=== PATIENT | female | born 1950 | race American Indian/Alaskan Native ===

== ENCOUNTER 2017-01-22 13:29 | Observation (INO) | payer MEDICARE, MEDICAID ==
[2017-01-22 13:31] VITALS: BMI 26.4
--- NOTE | 2017-01-22 13:49 | ED PDOC ---
Arrival/HPI - General Chief Complaint: Chest Pain Time Seen by Provider: 01/22/17 13:31 Historian: Long-Term, EMS - History of Present Illness Narrative History of Present Illness (Text): 01/22/17 13:45 A 67 year old female, whose past medical history includes dementia, CAD and pacemaker, sent into the emergency department from longterm complaining of chest pain for 1 week. As per longterm, patients pain worsened today causing them to send patient in for further evaluation. EMS reports patient received Aspirin and Nitroglyecerin in field. Patient unable to provide further history due to dementia. HPI and ROS limited. PMD: Dr. Miranda Time/Duration: 1 week Symptom Course: Worsening (today) Context: Home (longterm) Past Medical History - Provider Review Nursing Documentation Reviewed: Yes - Infectious Disease Hx of Infectious Diseases: None - Cardiac Hx Atrial Fibrillation: Yes Hx Congestive Heart Failure: Yes Hx Hypertension: Yes Hx Pacemaker: Yes - Neurological Hx Dementia: Yes - Endocrine/Metabolic Hx Diabetes Mellitus Type 2: Yes - Musculoskeletal/Rheumatological Hx Osteoarthritis: Yes - Gastrointestinal Hx Gastroesophageal Reflux: Yes - Psychiatric Hx Anxiety: Yes Hx Depression: Yes Hx Substance Use: No - Anesthesia Hx Anesthesia: No Family/Social History - Physician Review Nursing Documentation Reviewed: Yes Family/Social History: No Known Family HX Smoking Status: Never Smoked Hx Alcohol Use: No Hx Substance Use: No Allergies/Home Meds Allergies/Adverse Reactions: Allergies No Known Allergies Allergy (Verified 01/22/17 13:41) Home Medications: Home Meds Medication Instructions Recorded Confirmed Acetaminophen [Tylenol Extra 1,000 mg PO TID PRN 01/22/17 01/22/17 Strength] Albuterol/Ipratropium [Duoneb 3 1 vial IH Q6 01/22/17 01/22/17 mg/0.5 mg (3 ml) UD] Ascorbic Acid [Vitamin C] 500 mg PO DAILY 01/22/17 01/22/17 Digoxin [Lanoxin] 0.125 mg PO ONCE 01/22/17 01/22/17 Donepezil [Aricept] 10 mg PO HS 01/22/17 01/22/17 Empagliflozin [Jardiance] 25 mg PO ONCE 01/22/17 01/22/17 Enalapril Maleate [Vasotec] 2.5 mg PO ONCE 01/22/17 01/22/17 Famotidine [Pepcid] 20 mg PO ONCE 01/22/17 01/22/17 Furosemide [Lasix] 40 mg PO ONCE 01/22/17 01/22/17 Gabapentin [Neurontin] 600 mg PO TID 01/22/17 01/22/17 Insulin Aspart, Recombinant 01/22/17 [Novolog] Insulin Glargine, Recombina 14 units SQ ONCE 01/22/17 01/22/17 [Lantus] Levothyroxine [Synthroid] 137 mcg PO ONCE 01/22/17 01/22/17 Rosuvastatin Calcium [Crestor] 10 mg PO ONCE 01/22/17 01/22/17 Spironolactone [Aldactone] 25 mg PO ONCE 01/22/17 01/22/17 Venlafaxine [Effexor] 37.5 mg PO ONCE 01/22/17 01/22/17 Zolpidem [Ambien] 5 mg PO HS 01/22/17 01/22/17 traMADol [Ultram] 50 mg PO ONCE 01/22/17 01/22/17 Review of Systems - Review of Systems Systems not reviewed;Unavailable: Dementia Physical Exam Vital Signs Reviewed: Yes Vital Signs Pulse Resp BP Pulse Ox 01/22/17 13:40 90 18 121/57 L 98 Temperature: Afebrile Blood Pressure: Hypotensive Pulse: Regular Respiratory Rate: Normal Appearance: Positive for: Well-Appearing, Non-Toxic, Comfortable Pain Distress: None Mental Status: Positive for: other (Awake, Alert and Oriented x 1) - Systems Exam Head: Present: Atraumatic, Normocephalic Pupils: Present: PERRL Extroacular Muscles: Present: EOMI Conjunctiva: Present: Normal Mouth: Present: Moist Mucous Membranes Neck: Present: Normal Range of Motion Respiratory/Chest: Present: Clear to Auscultation, Good Air Exchange, Other ( Pacemaker to left chest wall). No: Respiratory Distress, Accessory Muscle Use Cardiovascular: Present: Regular Rate and Rhythm, Normal S1, S2. No: Murmurs Abdomen: Present: Normal Bowel Sounds. No: Tenderness, Distention, Peritoneal Signs Back: Present: Normal Inspection Upper Extremity: Present: Normal Inspection, NORMAL PULSES. No: Cyanosis, Edema Lower Extremity: Present: Normal Inspection, NORMAL PULSES. No: Edema, CALF TENDERNESS Neurological: Present: GCS=15, CN II-XII Intact, Speech Normal Skin: Present: Warm, Dry, Normal Color. No: Rashes Psychiatric: Present: Other (Awake, Alert and Oriented x 1) Medical Decision Making ED Course and Treatment: 01/22/17 13:45 Impression: A 67 year old female sent in for chest pain Plan: -- Chest xray -- EKG -- Labs -- Reassess and disposition Progress Notes: EKG shows paced rhythm at 60 BPM. Interpreted by me. 01/22/17 14:20 Repeat ekg at 14:12 due to recurrence of chest pain shows paced rhythm at 60bpm with no acute ST changes with nitro given with no change in pain. Trop negative. BNP elevated 01/22/17 14:52 Patient now chest pain free. Will admit to tele observation under Dr. Miranda - Lab Interpretations Lab Results: 01/22/17 13:47 01/22/17 13:47 Lab Results 01/22/17 13:47: Sodium 137, Potassium 4.1, Chloride 97 L, Carbon Dioxide 33, Anion Gap 11, BUN 18, Creatinine 1.1, Est GFR ( Amer) 60, Est GFR (Non- Af Amer) 49, Random Glucose 170 H, Calcium 11.3 H, Total Bilirubin 0.5, AST 26, ALT 29, Alkaline Phosphatase 108, Total Creatine Kinase 112, Troponin I 0.02, NT -Pro-B Natriuret Pep 1590 H, Total Protein 7.4, Albumin 4.0, Globulin 3.4, Albumin/Globulin Ratio 1.2 01/22/17 13:47: WBC 5.5, RBC 4.21, Hgb 13.0, Hct 39.5, MCV 93.8, MCH 30.9, MCHC 32.9, RDW 12.2, Plt Count 197, MPV 10.5, Gran % 43.2 L, Lymph % (Auto) 43.4 H, [place] % (Auto) 9.5 H, Eos % (Auto) 3.5, Baso % (Auto) 0.4, Gran # 2.36, Lymph # 2.4, [place] # 0.5, Eos # 0.2, Baso # 0.02 I have reviewed the lab results: Yes - RAD Interpretation Radiology Orders: 01/22/17 13:43 CHEST PORTABLE [RAD] Stat - Medication Orders Current Medication Orders: Discontinued Medications Nitroglycerin (Nitrostat Sl Tab) 0.3 mg SL STAT STA Stop: 01/22/17 14:06 Last Admin: 01/22/17 14:10 Dose: 0.3 mg - Scribe Statement The provider has reviewed the documentation as recorded by the Kourtneyibe Emilia Salter Provider Scribe Attestation: All medical record entries made by the Scribe were at my direction and personally dictated by me. I have reviewed the chart and agree that the record accurately reflects my personal performance of the history, physical exam, medical decision making, and the department course for this patient. I have also personally directed, reviewed, and agree with the discharge instructions and disposition. Disposition/Present on Arrival - Present on Arrival Any Indicators Present on Arrival: No History of DVT/PE: No History of Uncontrolled Diabetes: No Urinary Catheter: No History of Decub. Ulcer: No History Surgical Site Infection Following: None - Disposition Have Diagnosis and Disposition been Completed?: Yes Diagnosis: Chest pain, Dementia Disposition: HOSPITALIZED Disposition Time: 14:20 Patient Plan: Observation Condition: FAIR Discharge Instructions (ExitCare): Chest Pain (ED) Referrals: Madyson Miranda MD [Primary Care Provider] - Follow up with primary Forms: Entrada (Turkmen)
[2017-01-22 13:58] LABS: BASO # 0.02 K/mm3 (0.0-2.0); BASO % 0.4 % (0.0-3.0); EOS # 0.2 (0.0-0.7); EOS % 3.5 % (1.5-5.0); GRAN # 2.36 (1.4-6.5); GRAN % 43.2 % (50.0-68.0); HEMATOCRIT 39.5 % (36.0-48.0); LYMPH # 2.4 (1.2-3.4); LYMPH % 43.4 % (22.0-35.0); MEAN CELL VOLUME 93.8 fl (80.0-105.0); MEAN CORPUSCULAR HEMOGLOBIN 30.9 pg (25.0-35.0); MEAN CORPUSCULAR HGB CONC 32.9 g/dl (31.0-37.0); MEAN PLATELET VOLUME 10.5 fl (7.0-11.0); MONO # 0.5 (0.1-0.6); MONO % 9.5 % (1.0-6.0); RED CELL DISTRIBUTION WIDTH 12.2 % (11.5-14.5); WHITE BLOOD COUNT 5.5 10^3/ul (4.5-11.0)
[2017-01-22 14:10] LABS: ALB/GLOB RATIO 1.2 (1.1-1.8); BILIRUBIN,TOTAL 0.5 mg/dL (0.2-1.3); CALCIUM 11.3 mg/dL (8.4-10.5); POTASSIUM 4.1 mmol/L (3.6-5.0); TOTAL PROTEIN 7.4 g/dL (5.8-8.3)
[2017-01-22 14:20] LABS: TROPONIN I 0.02 ng/mL
--- NOTE | 2017-01-22 15:04 | RAD ---
HISTORY: Chest pain COMPARISON: No prior. FINDINGS: LUNGS: The lungs are well inflated and clear. PLEURA: No significant pleural effusion identified, no pneumothorax apparent. CARDIOVASCULAR: There is severe cardiomegaly. There is a left-sided dual lead transvenous permanent pacing device. OSSEOUS STRUCTURES: No significant abnormalities. VISUALIZED UPPER ABDOMEN: Normal. OTHER FINDINGS: None. IMPRESSION: No active pulmonary disease. Severe cardiomegaly.
[2017-01-22] MEDS ORDERED: Naproxen 550 mg Tab PO STA (22:58)
--- NOTE | 2017-01-22 22:59 | CP.PCM.PN ---
Subjective - Date & Time of Evaluation Date of Evaluation: 01/22/17 Time of Evaluation: 22:58 - Subjective Subjective: Patient was seen at bedside. Complains of chest pain , both arms pain, legs pain. Chest pain on and off for years. Pain increases when touches the chest wall. Denies sob, nausea, sweating,palpitations. Medical record was reviewed. PMH:CAD,dementia, Pacemaker,HTN, CHF, atrial fibrillation, DM II, OA,GERD, anxiety , depression. Objective - Vital Signs/Intake and Output Vital Signs (last 24 hours): Temp Pulse Resp BP Pulse Ox 98.0 F 60 17 100/60 98 01/22/17 19:11 01/22/17 19:11 01/22/17 19:11 01/22/17 19:11 01/22/17 19:11 - Medications Medications: Current Medications Albuterol/Ipratropium (Duoneb 3 Mg/0.5 Mg (3 Ml) Ud) ml IH Q6 GERALD Digoxin (Lanoxin) 0.125 mg PO ONCE GERALD Donepezil HCl (Aricept) 10 mg PO HS GERALD Famotidine (Pepcid) 20 mg PO ONCE GERALD Furosemide (Lasix) 40 mg PO ONCE GERALD Gabapentin (Neurontin) 600 mg PO TID GERALD PRN Reason: Protocol Insulin Human Regular (Humulin R Low) 0 units SC ACHS GERALD PRN Reason: Protocol Insulin Human Regular (Humulin R Low) 0 units SC ACHS GERALD PRN Reason: Protocol Levothyroxine Sodium (Synthroid) 137 mcg PO ONCE GERALD Non-Formulary Medication (Acetaminophen [Tylenol Extra Strength]) 1,000 mg PO TID PRN PRN Reason: Pain, Mild (1-3) Non-Formulary Medication (Ascorbic Acid [Vitamin C]) 500 mg PO DAILY GERALD Non-Formulary Medication (Empagliflozin [Jardiance]) 25 mg PO ONCE GERALD Non-Formulary Medication (Enalapril Maleate [Vasotec]) 2.5 mg PO ONCE GERALD Non-Formulary Medication (Insulin Glargine, Recombina [Lantus]) 14 units SQ ONCE GERALD Non-Formulary Medication (Rosuvastatin Calcium [Crestor]) 10 mg PO ONCE GERALD Spironolactone (Aldactone) 25 mg PO ONCE GERALD Tramadol HCl (Ultram) 50 mg PO ONCE GERALD Venlafaxine HCl (Effexor) 37.5 mg PO ONCE GERALD Zolpidem Tartrate (Ambien) 5 mg PO HS PRN; Protocol PRN Reason: Insomnia - Labs Labs: Most Recent Lab Values WBC 5.5 10^3/ul (4.5-11.0) 01/22/17 13:47 RBC 4.21 10^6/uL (3.5-6.1) 01/22/17 13:47 Hgb 13.0 g/dL (12.0-16.0) 01/22/17 13:47 Hct 39.5 % (36.0-48.0) 01/22/17 13:47 MCV 93.8 fl (80.0-105.0) 01/22/17 13:47 MCH 30.9 pg (25.0-35.0) 01/22/17 13:47 MCHC 32.9 g/dl (31.0-37.0) 01/22/17 13:47 RDW 12.2 % (11.5-14.5) 01/22/17 13:47 Plt Count 197 10^3/uL (120.0-450.0) 01/22/17 13:47 MPV 10.5 fl (7.0-11.0) 01/22/17 13:47 Gran % 43.2 % (50.0-68.0) L 01/22/17 13:47 Lymph % (Auto) 43.4 % (22.0-35.0) H 01/22/17 13:47 [place] % (Auto) 9.5 % (1.0-6.0) H 01/22/17 13:47 Eos % (Auto) 3.5 % (1.5-5.0) 01/22/17 13:47 Baso % (Auto) 0.4 % (0.0-3.0) 01/22/17 13:47 Gran # 2.36 (1.4-6.5) 01/22/17 13:47 Lymph # 2.4 (1.2-3.4) 01/22/17 13:47 [place] # 0.5 (0.1-0.6) 01/22/17 13:47 Eos # 0.2 (0.0-0.7) 01/22/17 13:47 Baso # 0.02 K/mm3 (0.0-2.0) 01/22/17 13:47 Sodium 137 mmol/L (132-148) 01/22/17 13:47 Potassium 4.1 mmol/L (3.6-5.0) 01/22/17 13:47 Chloride 97 mmol/L (98-107) L 01/22/17 13:47 Carbon Dioxide 33 mmol/L (21-33) 01/22/17 13:47 Anion Gap 11 (10-20) 01/22/17 13:47 BUN 18 mg/dL (7-21) 01/22/17 13:47 Creatinine 1.1 mg/dL (0.7-1.2) 01/22/17 13:47 Est GFR ( Amer) 60 01/22/17 13:47 Est GFR (Non-Af Amer) 49 01/22/17 13:47 Random Glucose 170 mg/dL (70-110) H 01/22/17 13:47 Calcium 11.3 mg/dL (8.4-10.5) H 01/22/17 13:47 Total Bilirubin 0.5 mg/dL (0.2-1.3) 01/22/17 13:47 AST 26 U/L (14-36) 01/22/17 13:47 ALT 29 U/L (7-56) 01/22/17 13:47 Alkaline Phosphatase 108 U/L (38-126) 01/22/17 13:47 Total Creatine Kinase 112 U/L (35-230) 01/22/17 13:47 Troponin I 0.02 ng/mL 01/22/17 13:47 NT-Pro-B Natriuret Pep 1590 pg/mL (0-450) H 01/22/17 13:47 Total Protein 7.4 g/dL (5.8-8.3) 01/22/17 13:47 Albumin 4.0 g/dL (3.0-4.8) 01/22/17 13:47 Globulin 3.4 gm/dL 01/22/17 13:47 Albumin/Globulin Ratio 1.2 (1.1-1.8) 01/22/17 13:47 - Constitutional Appears: Well, No Acute Distress - Head Exam Head Exam: ATRAUMATIC, NORMAL INSPECTION, NORMOCEPHALIC - Eye Exam Eye Exam: Normal appearance - ENT Exam ENT Exam: Normal External Ear Exam - Neck Exam Neck Exam: Normal Inspection - Respiratory Exam Respiratory Exam: NORMAL BREATHING PATTERN - Cardiovascular Exam Cardiovascular Exam: Irregular Rhythm. absent: JVD Additional comments: precordial tenderness positive. - GI/Abdominal Exam GI & Abdominal Exam: absent: Distended - Rectal Exam Rectal Exam: Deferred - Exam Additional comments: deferred. - Extremities Exam Extremities Exam: Normal Inspection - Back Exam Back Exam: NORMAL INSPECTION - Neurological Exam Neurological Exam: Alert, Oriented x3 - Psychiatric Exam Psychiatric exam: Normal Affect, Normal Mood - Skin Skin Exam: Normal Color Assessment and Plan - Assessment and Plan (Free Text) Assessment: Musculoskeletal chest pain. CAD. Atrial fibrillation. PPM. HTN. CHF. DM II. OA. GERD. Anxiety. Plan: Naprosyn 550 mg PO x 1. Continue present management.
--- NOTE | 2017-01-22 23:07 | CARD ---
APPROVED REPORT EKG Measurement Heart [id number] <Conclusion> Electronic ventricular pacemaker Underlying rhythm is A Fib.
[2017-01-23] MEDS: Albuterol-Ipratrop 3 mg / 0.5 (3 ml) UD IH SCH ×3 (03:47→14:05)
[2017-01-23 05:56] VITALS: O2SAT 94
[2017-01-23] MEDS ORDERED: Levothyroxine 25 MCG TAB PO SCH (06:00)
[2017-01-23] MEDS ORDERED: Levothyroxine 112 MCG TAB PO SCH ×2 (06:00)
--- NOTE | 2017-01-23 06:08 | HP ---
CHIEF COMPLAINT: Chest pain. HISTORY OF PRESENT ILLNESS: Ms. Casimiro Domínguez is a 67-year-old female, my private patient, resident of [facility] with past medical history of dementia, coronary artery disease, pacemaker, started chest pain in the half-way then brought to the [facility] emergency room. According to the patient, she has chest pain from 1 week as per half-way. Patient's pain worsened today causing them to send the patient for further evaluation. EMS reports, the patient receiving aspirin and nitroglycerin in the field. Patient is unable to provide further history because of dementia. Patient has history of hypertension, hypercholesterolemia and rheumatoid arthritis. PAST MEDICAL HISTORY: Atrial fibrillation, congestive heart failure, hypertension, pacemaker, COPD, dementia, diabetes mellitus, osteoarthritis, anxiety, depression. FAMILY HISTORY: Father and mother noncontributory. HABITS: Never smoked, no drugs, no ethanol. ALLERGIES: THE PATIENT IS NOT ALLERGIC TO ANY MEDICATIONS. HOME MEDICATIONS: Tylenol, albuterol, vitamin C, Lanoxin, Aricept, Jardiance, Vasotec, Pepcid, Lasix, Neurontin, insulin, Synthroid, Aldactone, Effexor, Ambien, Tramadol. REVIEW OF SYSTEMS: The patient is examined at the bedside with telemetry. Nurse is getting interview. Patient was complaining about chest pain, sometime coughing and shortness of breath. No nausea or vomiting. No diarrhea. No hematuria. No hematochezia. No swelling of the leg. No headache or dizziness. PHYSICAL EXAMINATION: VITAL SIGNS: Temperature 98.6, pulse 90, respiratory rate 18, blood pressure 120/57, pulse oximetry 98. HEENT: Head is normocephalic and atraumatic. Eyes: PERRLA. Extraocular muscles intact. Conjunctivae are clear. Nose is patent. Mucous membranes are moist. NECK: Supple. No carotid bruit. No JVD or thyromegaly. CHEST: Bilaterally symmetrical. HEART: S1 and S2 positive. LUNGS: Clear to auscultation. ABDOMEN: Soft. Bowel sounds present. No organomegaly. EXTREMITIES: No edema. No cyanosis. NEUROLOGIC: The patient is awake and alert. Moving all four extremities. No focal deficits. LABORATORY DATA: White blood cell is 5.5, hemoglobin is 13.0, hematocrit is 39.5, platelets 197. Sodium 137, potassium 4.1, BUN 18, creatinine 1.1, glucose 170. ASSESSMENT AND PLAN: Ms. Casimiro Domínguez is a 67-year-old lady came with chest pain, has advanced dementia, history of atrial fibrillation, congestive heart failure, hypertension, has pacemaker, diabetes mellitus type 2, osteoarthritis, anxiety, depression, chronic obstructive pulmonary disease, hypothyroidism, hypercholesterolemia, depression, insomnia. ordered cardiac enzymes x3. Cardiology and Pulmonary consult called. We will follow up. Madyson Miranda MD MTDD
[2017-01-23 07:21] LABS: MEAN CORPUSCULAR HEMOGLOBIN 30.2 pg (25.0-35.0); MEAN CORPUSCULAR HGB CONC 32.5 g/dl (31.0-37.0); MEAN PLATELET VOLUME 10.9 fl (7.0-11.0); RED CELL DISTRIBUTION WIDTH 12.2 % (11.5-14.5); WHITE BLOOD COUNT 4.6 10^3/ul (4.5-11.0)
[2017-01-23] MEDS ORDERED: Insulin Reg-LOW-Coverage SC SCH (07:30)
[2017-01-23 07:31] LABS: ALB/GLOB RATIO 1.2 (1.1-1.8); ALKALINE PHOSPHATASE 105 U/L (38-126); ALT/SGPT 27 U/L (7-56); AST/SGOT 26 U/L (14-36); BILIRUBIN,TOTAL 0.6 mg/dL (0.2-1.3); BLOOD UREA NITROGEN 18 mg/dL (7-21); CALCIUM 10.9 mg/dL (8.4-10.5); CARBON DIOXIDE 31 mmol/L (21-33); CHLORIDE 100 mmol/L (98-107); CHOLESTEROL 135 mg/dL (130-200); GFR AFRICAN-AMERICAN > 60; GLUCOSE,RANDOM 137 mg/dL (70-110); IRON 55 ug/dL (45-180); POTASSIUM 3.9 mmol/L (3.6-5.0); SODIUM 138 mmol/L (132-148); TOTAL PROTEIN 6.8 g/dL (5.8-8.3)
[2017-01-23] MEDS: Insulin Reg-LOW-Coverage SC SCH ×3 (08:41→16:24)
[2017-01-23 08:48] LABS: TROPONIN I 0.02 ng/mL
[2017-01-23] MEDS ORDERED: Insulin Detemir 100 units/ml Vial (Levemir) SC SCH (10:00)
[2017-01-23 13:59] VITALS: PULSE 65
[2017-01-23 14:00] VITALS: BP 125/66; PULSE 59; RESP 18; TEMP 98.9
[2017-01-23] MEDS ORDERED: Digoxin 125 mcg (0.125 mg) Tab PO SCH (14:00)
[2017-01-23 16:47] LABS: FOLATE 8.6 ng/mL
[2017-01-23 17:41] LABS: TROPONIN I < 0.01 ng/mL
--- NOTE | 2017-01-24 03:40 | CON ---
DATE: 01/23/2017 PULMONARY CONSULTATION REFERRING PHYSICIAN: Madyson Miranda MD REASON FOR CONSULTATION: Chest pain, shortness of breath, and may have sleep apnea syndrome. HISTORY OF PRESENT ILLNESS: This is a 67-year-old female with past medical history significant for atrial fibrillation, CHF, hypertension, cardiac arrhythmia requiring pacemaker, dementia, diabetes, osteoarthritis, anxiety disorder, depression, who is a skilled nursing resident, started complaining about some chest pain and shortness of breath. The patient was sent to emergency room and was kept under observation. Presently, lying in the bed and feels better. Denies any cough or short of breath. No nausea, no vomiting, no diarrhea. Mild epigastric discomfort. PAST MEDICAL HISTORY: As per history of present illness. FAMILY HISTORY: No significant cardiopulmonary disease reported. SOCIAL HISTORY: Nonsmoker and nondrinker. ALLERGIES: NONE KNOWN. MEDICATIONS: She is on Aldactone 25 mg daily, Ambien 5 mg at bedtime p.r.n., Naprosyn 550 mg one dose was given, Aricept 10 mg daily, DuoNeb q.6 hours, Effexor 37.5 mg daily, Eliquis 5 mg twice a day, also on empagliflozin 25 mg daily, insulin coverage, digoxin 0.125 mg daily, Lasix 40 mg daily, Levemir 7 units subcutaneously q.12 hours, Lipitor 40 mg daily, metoprolol tartarate 25 mg twice a day, gabapentin 600 mg 3 times a day, Pepcid 20 mg daily, Synthroid 137 mcg daily, Tylenol p.r.n., Ultram p.r.n., vitamin C 500 mg daily, and Zestril 2.5 mg daily. REVIEW OF SYSTEMS: No headache. No rhinitis. There is no noise sleepy and tired. No nausea. No vomiting. No more chest pain. Mild epigastric discomfort. No dysuria, leg pain or leg swelling. PHYSICAL EXAMINATION: GENERAL: Lying in the bed, in no acute distress. VITAL SIGNS: Temperature is 98, heart rate 59, respiratory rate is 20, blood pressure is 125/66, and pulse ox 94% on room air. HEENT: Moist mucous membranes. Crowded airway. Mallampati score is IV. NECK: Supple. No JVD. CARDIOPULMONARY: S1 and S2. LUNGS: Has a fair airflow with a few rhonchi. ABDOMEN: Soft. Mild epigastric tenderness. EXTREMITIES: There is no edema. NEUROLOGIC: Awake, alert, and follow simple commands. LABORATORY DATA: Shows hemoglobin 13.0, hematocrit 40.0, WBC 4.6, and platelet is 173. Glucose is 150. Sodium 138, potassium 3.9, chloride 100, bicarbonate 31, BUN 18, creatinine 1.0, and glucose is 137. Hemoglobin A1c is 7.0. Calcium 10.9. Iron is 55. LDH is 542. Troponin is 0.02. Albumin is 3.7. TSH is 0.42. IMPRESSION AND PLAN: Atrial fibrillation, congestive heart failure, hypertension, has cardiac arrhythmia, chronic lung disease, gastroesophageal reflux disease, may have gastritis, dementia, diabetes, and anxiety disorder. I agree with the present management. Continue Pepcid. Keep head at 45 degrees. Careful with nonsteroidals. Gastroesophageal reflux disease precaution. Consider sleep study if daytime symptom persists. Thank you, and we will follow with you. Shiloh Arita MD
--- NOTE | 2017-01-24 03:56 | DS ---
The patient was admitted on 01/22/2017 and discharged on 01/23/2017 after clearance from the Cardiology. CHIEF COMPLAINT: Chest pain. HISTORY OF PRESENT ILLNESS: Ms. Catrachita Kirkpatrick is a 67-year-old patient, resident of [facility] with history of dementia, coronary artery disease, pacemaker, had chest pain in the detention and was brought to [facility] Emergency Room, seen, examined and admitted. Cardiology consult called, seen by Dr. Jessica De Souza, house physician and according to Dr. De Souza, the pain increases with touching, looks like tender. The patient was admitted in the telemetry, seen by the circular knitter. Three sets of cardiac enzymes done, is 0.02, 0.02. As per Cardiology, as nurse practitioner Janette, it looks like musculoskeletal. Air Hammer Stripper cleared the patient. Discharged back to detention, still waiting for circular knitter documentation, not in the computer, but nurse practitioner and circular knitter cleared the patient for discharge. PAST MEDICAL HISTORY: Atrial fibrillation, congestive heart failure, hypertension, pacemaker, COPD, dementia, diabetes mellitus, osteoarthritis, and depression. FAMILY HISTORY: Father and mother noncontributory. HABITS: Never smoked. No drugs. No ethanol. ALLERGIES: THE PATIENT IS NOT ALLERGIC TO ANY MEDICATIONS. HOME MEDICATIONS: Reviewed by me. REVIEW OF SYSTEMS: The patient was seen and examined at the bedside, looking comfortable. No nausea, vomiting or diarrhea. No hematuria or hematochezia. No swelling of the legs. Chest pain is better. No headache. No dizziness. No fever. No chills. PHYSICAL EXAMINATION: VITAL SIGNS: Temperature 98.8, pulse 80 , blood pressure 125/66, respiratory rate 18. HEENT: Head, normocephalic and atraumatic. Eyes; PERRLA. Extraocular muscles are intact. Conjunctivae are clear. Nose is patent. Mucous membrane moist. NECK: Supple. No carotid bruits. No JVD or thyromegaly. CHEST: Bilaterally symmetrical. HEART: S1 and S2 positive. LUNGS: Clear to auscultation. ABDOMEN: Soft. Bowel sounds positive. No organomegaly. EXTREMITIES: No edema. No cyanosis. NEUROLOGIC: The patient is awake and alert. Moving all 4 extremities. No focal deficits. LABORATORY DATA: White blood cells 4.6, hemoglobin 13.0, hematocrit 40.0, platelets 173, glucose 139 and 155. Hemoglobin A1c 7.0. Iron saturation is 10. Sodium 138, potassium 3.9. BUN 18, and creatinine 1.0. ASSESSMENT AND PLAN: Ms. Catrachita Kirkpatrick is 67-year-old lady with uncontrolled diabetes mellitus. Hemoglobin A1c is 7, hypercalcemia, congestive heart failure, coronary artery disease, dementia, pacemaker, hypertension, atrial fibrillation, osteoarthritis, gastroesophageal reflux disease, anxiety, depression. Chest pain is better. The patient has advanced dementia, atrial fibrillation, osteoarthritis, depression and insomnia. Discharged the patient back to [facility]. We will continue treatment there. Continue same home medications. Madyson Miranda MD MTDD
--- NOTE | 2017-01-24 08:38 | CON ---
DATE:01/23/2017 CONSULT SERVICE: Cardiology. REASON FOR CONSULTATION: Chest pain, cardiac evaluation. BRIEF CLINICAL HISTORY: This 67-year-old female, morbidly obese, is a [facility], transferred because of complaining of the chest pain. The patient had a past history significant for dementia, coronary artery disease status post pacemaker possibly done in [facility]. The patient's dementia unable to give the detailed history. She keep on forgetting , talking normally then she keeps forgetting and she says "I am not sure." History of hypertension, history of hyperlipidemia, and history of rheumatoid arthritis. Currently, denies any chest pain, but states sometime she gets the chest pain while watching TV, sometime without doing anything. Mostly, she has been bounded limited activity. PAST MEDICAL HISTORY: Significant for history of atrial fibrillation, congestive heart failure, hypertension, pacemaker, COPD, dementia, diabetes, osteoarthritis, rheumatoid arthritis, anxiety, and depression. SOCIAL HISTORY: Denies any history of smoking. Denies any history of alcohol abuse. Denies any history of substance abuse. FAMILY HISTORY: Noncontributory. ALLERGIES: NO KNOWN DRUG ALLERGY. CURRENT MEDICATIONS: The patient at [facility] was taking Pepcid, tramadol, Ambien 5 mg daily, ascorbic acid 500 mg daily, Effexor, Aldactone 25 mg daily, Crestor 10 mg daily, , DuoNeb nebulizer treatment, levothyroxine 137 mcg daily, gabapentin 600 mg 3 times a day, Lasix 40 mg daily, enalapril 2.5 mg daily, digoxin 0.125 mg daily, Tylenol p.r.n. and insulin. REVIEW OF SYSTEMS: As per HPI. PHYSICAL EXAMINATION: VITAL SIGNS: Temperature afebrile, heart rate 79 and blood pressure 116/51. HEENT: PERRLA. Extraocular muscles intact. NECK: Supple. No carotid bruit or thyromegaly. CHEST: Clear to auscultation. HEART: S1 and S2 regular. ABDOMEN: Soft. EXTREMITIES: Clubbing and cyanosis negative. EKG shows V paced rhythm at rate of 50, underlying possible AFib. LABORATORY DATA: As follows, WBC 4.6, hemoglobin 13, hematocrit 40.0, and platelet count 173. Chemistry shows sodium 130, potassium 3.9, chloride 100, carbon dioxide 31, anion gap of 11, BUN 18, and creatinine 1.0. Troponin 0.02. First repeat troponin pending. IMPRESSION: Atypical chest pain, hypertension, hyperlipidemia, diabetes, status post pacemaker, and history of atrial fibrillation, not on anticoagulation. RECOMMENDATIONS: We will add troponin the morning and also at third set. If the troponin remains negative because of underlying mental condition and asymptomatology, we will treat medically. DVT prophylaxis, continue. We will add low-dose beta-jose, the patient has pacemaker atrial fibrillation. We will discuss with primary care physician, Dr. Miranda. long-term anticoagulation probably, the patient has underlying AFib. We will get the benefit from unless contraindicated. We will start 5 mg b.i.d. and follow with you. We will get echo to assess LV function. As the patient is new in the [facility], probably the previous workup is another hospital. We will follow with you. We will add 2 p.m. We will add lipid profile, TSH, hemoglobin A1c in the morning also. Thank you Dr. Miranda for providing me the opportunity in taking care of the patient, Catrachita Kirkpatrick. Shiloh Meng MD
== END 2017-01-23 17:29 ==
LOC: ED 13:29 → ERH 14:33 → MERGE 14:33 → ERH 18:45 → 2RSO 19:40
PROVIDERS: ADMIT Internal Medicine; ATTEND Internal Medicine
DX: R07.89 Other chest pain (principal); I11.0 Hypertensive heart disease with heart failure; I50.9 Heart failure, unspecified; I48.91 Unspecified atrial fibrillation; I25.10 Atherosclerotic heart disease of native coronary artery without angina pectoris; F03.90 Unspecified dementia, unspecified severity, without behavioral disturbance, psychotic disturbance, mood disturbance, and anxiety; E11.9 Type 2 diabetes mellitus without complications; J44.9 Chronic obstructive pulmonary disease, unspecified; E03.9 Hypothyroidism, unspecified; E78.00 Pure hypercholesterolemia, unspecified; M06.9 Rheumatoid arthritis, unspecified; K21.9 Gastro-esophageal reflux disease without esophagitis; E83.52 Hypercalcemia; G47.00 Insomnia, unspecified; E66.01 Morbid (severe) obesity due to excess calories; F32.9 Major depressive disorder, single episode, unspecified; F41.9 Anxiety disorder, unspecified; Z95.0 Presence of cardiac pacemaker
CPT/HCPCS: 36415; 71010; 80053; 80061; 80162; 82550; 82607; 82746; 82948; 83036; 83540; 83550; 83615; 83880; 84443; 84484; 85025; 85027; 93005; 93306; 94640; 99285; G0378